=== PATIENT | female | born 1975 | race Caucasian/White ===

== ENCOUNTER 2023-06-20 19:48 | Emergency (ER) | payer MEDICAID, SELFPAY ==
[2023-06-20 20:31] VITALS: BP 130/48; PULSE 65; RESP 16; TEMP 36.4; O2SAT 98; BMI 33.3
[2023-06-20 21:11] LABS: MANUAL DIFF FLAG NO
[2023-06-20 21:12] LABS: Basophils Percent Auto 0.4 % (0-2); Eosinophils Absolute Auto 0.1 X10*3/uL (0.0-0.4); Eosinophils Percent Auto 1.1 % (0-4); Hematocrit 31.3 % (37.0-47.0); Hemoglobin 9.3 g/dl (12.0-16.0); Imm Gran Abs Auto 0.01 X10*3/uL (0.00-0.03); Imm Gran Pct Auto 0.1 % (0.0-0.4); Lymphocytes Absolute Auto 2.1 X10*3/uL (1.2-4.9); Lymphocytes Percent Auto 29.3 % (20-40); Mean Corpuscular HGB Conc 29.7 g/dl (31.0-35.0); Mean Corpuscular Hemoglobin 21.5 pg (27.0-33.0); Mean Corpuscular Volume 72.5 fL (80.0-98.0); Mean Platelet Volume 9.4 fL (9.4-12.3); Monocytes Absolute Auto 0.6 X10*3/uL (0.1-1.2); Monocytes Percent Auto 8.1 % (2-11); Neutrophils Absolute Auto 4.3 x10*3/uL (2.0-8.3); Platelet Count 308 X10*3/uL (160-400); Red Blood Count 4.32 X10*6/uL (4.20-5.50); Red Cell Distribution Width 18.2 % (11.0-16.0)
[2023-06-20 21:32] LABS: Alanine Aminotransferase 11 U/L (0-31); Albumin Level 3.9 g/dL (3.5-5.0); Alkaline Phosphatase 64 U/L (39-117); Anion Gap 9 (12-20); Aspartate Amino Transferase 15 U/L (5-31); Bilirubin Total 0.1 mg/dL (0.0-1.0); Blood Urea Nitrogen 14 mg/dL (9-16); Carbon Dioxide 25 mmol/L (22-29); Chloride 110 mmol/L (96-108); Creatinine Clr Calc Pharmacy 106.3; Estimated Glomerular Filt Rate > 60; Glucose Random 90 mg/dL (60-115); Lipase 43 U/L (8-78); Sodium 140 mmol/L (135-145); Total Protein 7.4 g/dL (6.5-8.0)
[2023-06-20 21:35] LABS: HCG Quantitative < 2 mIU/mL
[2023-06-20 22:29] VITALS: BP 171/78; PULSE 56; RESP 16; TEMP 36.7; O2SAT 100
[2023-06-20 22:44] LABS: Appearance Urine Clear; Color Urine Yellow; Glucose Urine UA Negative (Negative); Leukocyte Esterase Urine Negative (Negative); Nitrite Urine Negative (Negative); Specific Gravity - Urine 1.025 (1.005-1.025); Urine Blood Negative (Negative); Urine Ketones Negative (Negative); Urine Protein Negative (Neg-Trace)
[2023-06-21 00:34] VITALS: BP 115/63; PULSE 61; RESP 18; TEMP 36.8; O2SAT 99
--- NOTE | 2023-06-21 00:46 | ED.FEMALEGU ---
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 was last year normal also patient has iron deficiency anemia but not taking her iron pills Related Data Previous Rx's Medication Instructions Recorded ferrous sulfate 325 mg (65 mg 325 mg PO DAILY #90 tabs 06/21/23 iron) tablet ibuprofen 600 mg tablet 600 mg PO Q6H PRN fever or pain 06/21/23 #30 tabs Allergies Allergy/AdvReac Type Severity Reaction Status Date / Time No Known Allergies Allergy Verified 06/20/23 20:31 Review of Systems Review of Systems: Yes all other systems are reviewed and are negative [facility] Social History Social History Alcohol intake: never Smoked in Last 30 Days: No Use of substances other than those prescribed or required for medical reasons: No Advance Directives: No Advance Directives Information Provided: Yes Patient : No Physical Exam Vital Signs: Vital Signs: Last Vital Signs Temp 98.2 F 06/21/23 00:34 Pulse 61 06/21/23 00:34 Resp 18 06/21/23 00:34 BP 115/63 06/21/23 00:34 Pulse Ox 99 06/21/23 00:34 O2 Del Method Room Air 06/21/23 00:34 BMI result Body Mass Index 33.3 Appearance: Alert. Oriented X3. No acute distress. Eyes: Slight pallor+ ENT: Pharynx normal. Oral Mucosa moist Neck: Normal inspection. Neck supple. CVS: Normal heart rate and rhythm. Pulses normal. Respiratory: No respiratory distress. Equal air entry bilateral, no wheezing/rales/rhonchi Abdomen: Soft mild suprapubic discomfort no rebound tenderness or guarding Bowel sounds are present, no mass palpable, no CVA tenderness Skin: Skin warm and dry. Normal skin color. Normal skin turgor. Extremities: No lower extremity edema. No calf tenderness Neuro: Oriented X 3. Medical Decision Making Medical Decision Making MDM Narrative: Patient has dysfunctional uterine bleed test is negative H&H stable has chronic iron deficiency anemia with low MCV not taking her iron pills will discharge patient home on iron placement ibuprofen advised to follow with community outreach advocate Differential Diagnosis Differential Diagnoses: The differential diagnosis associated with the presentation includes /DUB Lab Data [facility] Lab Attestation statement: I reviewed the patient's lab results. 06/20/23 21:06 06/20/23 21:06 Labs: Lab Results 06/20/23 06/20/23 Range/Units 21:06 22:34 WBC 7.0 (4.8-10.8) X10*3/uL RBC 4.32 (4.20-5.50) X10*6/uL Hgb 9.3 L (12.0-16.0) g/dl Hct 31.3 L (37.0-47.0) % MCV 72.5 L (80.0-98.0) fL MCH 21.5 L (27.0-33.0) pg MCHC 29.7 L (31.0-35.0) g/dl RDW 18.2 H (11.0-16.0) % Plt Count 308 (160-400) X10*3/uL MPV 9.4 (9.4-12.3) fL Immature Gran % (Auto) 0.1 (0.0-0.4) % Neut % (Auto) 61.0 (45-73) % Lymph % (Auto) 29.3 (20-40) % [place] % (Auto) 8.1 (2-11) % Eos % (Auto) 1.1 (0-4) % Baso % (Auto) 0.4 (0-2) % Lymph # (Auto) 2.1 (1.2-4.9) X10*3/uL [place] # (Auto) 0.6 (0.1-1.2) X10*3/uL Eos # (Auto) 0.1 (0.0-0.4) X10*3/uL Baso # (Auto) 0.0 (0.0-0.2) X10*3/uL Abs Immat Gran (auto) 0.01 (0.00-0.03) X10*3/uL Absolute Neuts (auto) 4.3 (2.0-8.3) x10*3/uL Absolute Nucleated RBC 0.000 (0.0-0.012) X10*3/uL Nucleated RBC % (auto) 0.0 (0.0-0.2) /100WBC Sodium 140 (135-145) mmol/L Potassium 4.0 (3.3-5.1) mmol/L Chloride 110 H (96-108) mmol/L Carbon Dioxide 25 (22-29) mmol/L Anion Gap 9 L (12-20) BUN 14 (9-16) mg/dL Creatinine 0.72 (0.5-1.4) mg/dL Estim Creat Clear Calc 106.3 Estimated GFR > 60 Random Glucose 90 (60-115) mg/dL Calcium 9.0 (8.4-10.2) mg/dL Total Bilirubin 0.1 (0.0-1.0) mg/dL AST 15 (5-31) U/L ALT 11 (0-31) U/L Alkaline Phosphatase 64 (39-117) U/L Total Protein 7.4 (6.5-8.0) g/dL Albumin 3.9 (3.5-5.0) g/dL Lipase 43 (8-78) U/L Beta HCG, Quant < 2 mIU/mL Urine Color Yellow Urine Appearance Clear Urine pH 7.0 (5.0-9.0) Ur Specific [place] 1.025 (1.005-1.025) Urine Protein Negative (Neg-Trace) mg/dL Urine Glucose (UA) Negative (Negative) mg/dL Urine Ketones Negative (Negative) mg/dL Urine Blood Negative (Negative) Urine Nitrite Negative (Negative) Ur Leukocyte Esterase Negative (Negative) Discharge Plan Discharge Clinical Impression: Dysfunctional uterine bleeding, Chronic iron deficiency anemia Patient Disposition: Home, Self-Care Instructions: Dysfunctional Uterine Bleeding (ED), Anemia (ED) Additional Instructions: Take ibuprofen for pain and discomfort Follow with your community outreach advocate for further evaluation Start taking your iron pills Prescriptions: New ibuprofen 600 mg tablet 600 mg PO Q6H PRN (Reason: fever or pain) Qty: 30 0RF ferrous sulfate 325 mg (65 mg iron) tablet 325 mg PO DAILY Qty: 90 0RF
[2023-06-21 01:08] LABS: Iron 23 mcg/dL (30-160); Percent Iron Saturation 6 % (15-50); Total Iron Binding Capacity 393 mcg/dL (228-428); Unsaturated Iron Binding 370 ug/dL
[2023-06-21] MEDS: Ibuprofen 600 MG TABLET PO (01:12)
== END 2023-06-21 01:15 | disposition home or self-care (01) ==
PROVIDERS: Emergency Provider Internal Medicine
DX: N93.9 Abnormal uterine and vaginal bleeding, unspecified (principal); R10.9 Unspecified abdominal pain; D50.9 Iron deficiency anemia, unspecified; Z79.899 Other long term (current) drug therapy
CPT/HCPCS: 36415; 80053; 81003; 83540; 83690; 84702; 85025; 99283; 99284